=== PATIENT | female | born 1970 | race Caucasian/White ===

== ENCOUNTER 2016-09-16 06:44 | Emergency (ER) | payer OTHER ==
[2016-09-16 07:11] LABS: EOSINOPHIL 3.7 % (0-5); HCT 45.1 % (37.0-47.0); HGB 15.6 g/dl (12.5-16.0); LYMPHOCYTE 46.1 % (15-48); MCH 28.7 pg (25.0-31.0); MCHC 34.6 g/dL (32.0-36.0); MCV 82.9 fL (78.0-100.0); MONOCYTE 11.5 % (0-12); MPV 9.4 fL (6.0-9.5); NEUTROPHIL 37.7 % (41-80); PLT 229 K/uL (150-400); RBC 5.44 M/uL (4.20-5.40); RDW 14.4 % (11.5-14.0); WBC 3.8 K/uL (4.0-10.5)
[2016-09-16 07:23] LABS: INR 0.9 (0.9-1.2); PROTHROMBIN TIME 11.8 SECONDS (11.7-14.0); PTT 26.3 SECONDS (23.2-31.4)
[2016-09-16 07:31] LABS: ALBUMIN 4.7 g/dL (3.5-5.0); CKMB 4.09 ng/mL (0.97-4.94); CREATININE 0.8 mg/dL (0.5-1.0); GLOBULIN (CALCULATION) 3.3 g/dL (2.2-4.2); MYOGLOBIN 73 ng/mL (26-65); TROPONIN T < 0.010 ng/mL
[2016-09-16 08:43] LABS: BILIRUBIN NEGATIVE (NEGATIVE); BLOOD NEGATIVE Ery/uL (NEGATIVE); CLARITY CLEAR (CLEAR); COLOR YELLOW (YELLOW); GLUCOSE (U) NORMAL (NORMAL); KETONE (U) NEGATIVE (NEGATIVE); LEUKOCYTES NEGATIVE Leu/uL (NEGATIVE); NITRITE NEGATIVE (NEGATIVE); PROTEIN NEGATIVE (NEGATIVE); SPECIFIC GRAVITY <=1.005 (1.001-1.030); UROBILINOGEN 0.2 mg/dL (0.2-1.0)
== END 2016-09-16 12:53 | disposition home or self-care (01) ==
LOC: FER 06:44
PROVIDERS: Internal Medicine
DX: E87.6 Hypokalemia (principal); G43.109 Migraine with aura, not intractable, without status migrainosus; R94.5 Abnormal results of liver function studies; K51.90 Ulcerative colitis, unspecified, without complications; R29.701 NIHSS score 1; Z87.19 Personal history of other diseases of the digestive system; Z91.040 Latex allergy status
CPT/HCPCS: 36415; 70450; 71010; 80053; 80061; 81003; 82550; 82553; 83874; 84484; 85025; 85610; 85730